=== PATIENT | male | born 1940 | race Caucasian/White ===

== ENCOUNTER → 2017-08-30 | Outpatient (CLI) | payer MEDICARE ==
--- NOTE | 2017-08-30 14:01 | RADIOLOGY IMAGING REPORT ---
FACILITY: [facility] PATIENT NAME: Saulo Goodrich : 1940 MR: [id number] V: [id number] EXAM DATE: ORDERING PHYSICIAN: POLLO PATTEN TECHNOLOGIST: Location: [facility] [place] Patient: Saulo Goodrich : 1940 Visit/Account:[id number] Date of Sevice: 08/30/2017 GROIN ULTRASOUND HISTORY: Bilateral femoral endarterectomies. Ultrasound evaluation of both groins FINDINGS: Left groin. There is an irregular hypodense heterogenous fluid collection measuring approx imately 4 x 2 x 4 cm in size adjacent to the incision. No vascularity noted within this. Just infer ior to the incision there is a second collection measuring 3 x 1.2 x 1.1 cm Right groin. In the right groin there is a small irregular fluid collection under the incision measu ring approximately 6 x 7 x 10 mm in size. Inferior to the incision there is a second fluid collectio n measuring 5 x 1.1 x 2.8 cm in size there is no flow seen within this apparent postoperative hematom a. IMPRESSION: Bilateral complex fluid collections likely representing postop hematomas. Based on the right leg inc ision being red with pus noted by the technologist, a developing infection under the right incision l ikely. There is a small 1 cm fluid collection under this incision. Results were discussed with POLLO PATTEN at 08/30/2017 1:57 PM. Report Dictated By: Nelson Yousif MD at 08/30/2017 1:35 PM Report E-Signed By: Nelson Yousif MD at 08/30/2017 1:57 PM WSN:[id number]
== END ==
LOC: US 12:02
PROVIDERS: ATTEND Physician Assistant Medical
DX: L76.32 Postprocedural hematoma of skin and subcutaneous tissue following other procedure (principal)
CPT/HCPCS: 36415; 76705; 87040

== ENCOUNTER → 2017-08-30 | Outpatient (REF) | payer MEDICARE ==
[2017-08-30 10:35] LABS: PLATELET COUNT, AUTOMATED 206 K/uL (150-450)
== END ==
PROVIDERS: ATTEND Physician Assistant Medical
DX: T81.4XXA Infection following a procedure, initial encounter (principal)
CPT/HCPCS: 82040; 82247; 82310; 82374; 82435; 82565; 82947; 84075; 84132; 84155; 84295; 84450; 84460; 84520; 85025